=== PATIENT | male | born 1930 | race Caucasian/White ===

== ENCOUNTER 2016-07-14 18:50 | Inpatient (IN) | payer MEDICARE, MEDICAID ==
[~2016-07-14] VITALS: Ht 172.7 cm; Wt 93.0 kg
[~2016-07-14 18:50] MED LIST: AMINOPHYLLIN200 MG PO; AMOXICILLIN500 M2 PO; ARICEPT10 MG PO; AVAPRO150 MG PO; AVPAK AZITHROM250 M1 PO; Avapro300 MG PO; B COMPLETE1 EACH PO; Bactroban Oint22 GM T; CELEXA PO; CELEXA20 MG PO; CIPROFLOXACIN2.5 M1 OPH; CITALOPRAM20 MG PO; Ciprodex 0.3%-7.5 ML OT; DRISDOL50000 IU PO; DUONEB 3 MG/3 ML3 M1 INH; EFUDEX5% T; ELIQUIS5 M1 PO; GLUCOPHAGE PO; HUMALOG KW200 UNIT/1 SC; HUMALOG KW200 UNIT/1 SQ; HUMALOG100 U/ML SC; HUMALOG100 UNIT/2 SQ; INSULIN-HUMA100 U/ML SC; IS; JANUVIA50 MG PO; LANTUS SC; LANTUS100 U/ML SC; LOPRESSOR25 MG PO; METFORMIN750 MG PO; NAMENDA-28 PO; NAMENDA10 MG PO; NORCO PO; OXYGEN NAS; PRAVACHOL20 MG PO; PREDNISONE10 MG PO; RIVASTIGMINE1 EAC2 T; SUPER B-50 COM1 EAC1 PO; TYLENOL325 M1 PO; Tobrex Ophth S2.5 ML OPH; VIBRAMYCIN100 MG PO; VITAMIN B COMPL1 CAP PO; VITAMIN D31000 I2 PO; VITAMIN D34000 UNIT PO; VITAMIN D50000 I3 PO; VITAMIN D50000 IU PO
[2016-07-14 18:59] VITALS: BP 117/67
[2016-07-14 19:20] LABS: BILIRUBIN NEGATIVE (NEGATIVE); BLOOD NEGATIVE (NEGATIVE); CLARITY CLEAR (CLEAR); COLOR YELLOW (YELLOW); GLUCOSE 3+ (NEGATIVE); KETONE NEGATIVE (NEGATIVE); LEUKO ESTERASE NEGATIVE (NEGATIVE); NITRITE NEGATIVE (NEGATIVE); PH 5.5 (5.0-9.0); PROTEIN NEGATIVE (NEGATIVE); UROBILINOGEN 0.2 E.U./dl (0.2-1.0)
[2016-07-14 19:31] LABS: WBC 0-2 wbc/hpf (0-5)
[2016-07-14 19:32] LABS: URINE REFLEX COMMENT NO (NO); YEAST 1+
[2016-07-14 19:37] LABS: BASO % 0.4 % (0.0-1.0); EOS # 0.2 10*3/uL (0.0-0.4); EOS % 4.2 % (1.0-4.0); HEMATOCRIT 30.8 % (42.0-52.0); HEMOGLOBIN 9.7 g/dl (14.0-18.0); LYMPH # 0.9 10*3/uL (1.3-4.4); LYMPH % 16.6 % (27.0-41.0); MEAN CELL VOLUME 89.8 fl (80.0-94.0); MEAN CORPUSCULAR HGB 28.3 pg (27.0-31.0); MEAN CORPUSCULAR HGB CONC 31.5 g/dl (33.0-37.0); MEAN PLATELET VOLUME 12.2 fl (9.6-12.3); MONO # 0.4 10*3/uL (0.1-1.0); MONO % 7.7 % (3.0-9.0); NEUT # 3.8 10*3/uL (2.3-7.9); NEUT % 70.4 % (47.0-73.0); PLATELET COUNT AUTOMATED 82 10*3/uL (130-400); RED BLOOD COUNT 3.43 10*6/uL (4.50-5.90); RED CELL DISTRI WIDTH 17.8 % (0-14.5); WHITE BLOOD COUNT 5.4 10*3/uL (4.8-10.8)
[2016-07-14 19:46] LABS: INTERNATIONAL NORM RATIO 0.9 (2.0-3.5); PROTHROMBIN TIME 9.9 SECONDS (9.0-12.4)
[2016-07-14 19:51] VITALS: BP 126/77
[2016-07-14 19:54] LABS: ALBUMIN 2.7 gm/dl (3.1-4.5); ALKALINE PHOSPHATASE 104 U/L (45-117); BILIRUBIN, TOTAL 0.3 mg/dl (0.2-1.0); BUN 27 mg/dl (7-24); CARBON DIOXIDE 28 mmol/L (21-32); CHLORIDE 94 mmol/L (98-107); EST GLOM FILT AFRICAN AMERICAN > 60 ml/min; POTASSIUM 4.6 mmol/L (3.5-5.1); SGOT/AST 11 IU/L (3-35); SGPT/ALT 26 U/L (12-78); SODIUM 133 mmol/L (136-145); TOTAL PROTEIN 6.6 gm/dL (6.4-8.2)
[2016-07-14 19:57] LABS: GLUCOSE 551 mg/dL (65-99)
[2016-07-14] MEDS ORDERED: HUMALOG100 U/ML SC (20:00)
[2016-07-14 20:30] VITALS: BP 111/58
[2016-07-15] VITALS: BP 121/62
[2016-07-15 01:54] LABS: BUN 26 mg/dl (7-24); CARBON DIOXIDE 27 mmol/L (21-32); CHLORIDE 102 mmol/L (98-107); EST GLOM FILT AFRICAN AMERICAN > 60 ml/min; GLUCOSE 123 mg/dL (65-99); POTASSIUM 3.8 mmol/L (3.5-5.1); SODIUM 140 mmol/L (136-145)
[2016-07-15 05:51] LABS: BUN 24 mg/dl (7-24); CARBON DIOXIDE 27 mmol/L (21-32); CHLORIDE 101 mmol/L (98-107); EST GLOM FILT AFRICAN AMERICAN > 60 ml/min; POTASSIUM 3.5 mmol/L (3.5-5.1); SODIUM 139 mmol/L (136-145)
[2016-07-15 06:10] LABS: GLUCOSE 36 mg/dL (65-99)
[2016-07-15 06:12] LABS: BASO % 0.4 % (0.0-1.0); EOS # 0.4 10*3/uL (0.0-0.4); EOS % 5.8 % (1.0-4.0); HEMATOCRIT 29.6 % (42.0-52.0); HEMOGLOBIN 9.3 g/dl (14.0-18.0); IG # 0.1 10*3/uL (0.0-0.1); LYMPH # 1.5 10*3/uL (1.3-4.4); LYMPH % 19.5 % (27.0-41.0); MEAN CELL VOLUME 88.9 fl (80.0-94.0); MEAN CORPUSCULAR HGB 27.9 pg (27.0-31.0); MEAN CORPUSCULAR HGB CONC 31.4 g/dl (33.0-37.0); MONO # 0.7 10*3/uL (0.1-1.0); MONO % 9.3 % (3.0-9.0); NEUT # 4.9 10*3/uL (2.3-7.9); NEUT % 64.2 % (47.0-73.0); PLATELET COUNT AUTOMATED 85 10*3/uL (130-400); RED BLOOD COUNT 3.33 10*6/uL (4.50-5.90); WHITE BLOOD COUNT 7.6 10*3/uL (4.8-10.8)
[2016-07-15 08:00] VITALS: BP 102/62
[2016-07-15 12:00] VITALS: BP 138/84
[2016-07-15 16:00] VITALS: BP 108/50
[2016-07-15 20:00] VITALS: BP 114/52
[2016-07-16] VITALS: BP 112/89
[2016-07-16 06:35] LABS: BASO % 0.1 % (0.0-1.0); EOS # 0.3 10*3/uL (0.0-0.4); EOS % 4.9 % (1.0-4.0); HEMATOCRIT 29.7 % (42.0-52.0); IG # 0.1 10*3/uL (0.0-0.1); LYMPH # 1.2 10*3/uL (1.3-4.4); LYMPH % 17.7 % (27.0-41.0); MEAN CELL VOLUME 92.5 fl (80.0-94.0); MEAN CORPUSCULAR HGB CONC 30.3 g/dl (33.0-37.0); MEAN PLATELET VOLUME 12.7 fl (9.6-12.3); MONO # 0.5 10*3/uL (0.1-1.0); MONO % 7.2 % (3.0-9.0); NEUT # 4.6 10*3/uL (2.3-7.9); NEUT % 69.2 % (47.0-73.0); NUCLEATED RED BLOOD CELL 0.3 % (0.0-0.0); PLATELET COUNT AUTOMATED 88 10*3/uL (130-400); RED BLOOD COUNT 3.21 10*6/uL (4.50-5.90); RED CELL DISTRI WIDTH 18.4 % (0-14.5); WHITE BLOOD COUNT 6.7 10*3/uL (4.8-10.8)
[2016-07-16 06:48] LABS: BUN 19 mg/dl (7-24); CARBON DIOXIDE 24 mmol/L (21-32); CHLORIDE 104 mmol/L (98-107); EST GLOM FILT AFRICAN AMERICAN > 60 ml/min; GLUCOSE 150 mg/dL (65-99); POTASSIUM 4.4 mmol/L (3.5-5.1); SODIUM 139 mmol/L (136-145)
[2016-07-16 08:00] VITALS: BP 108/52
[2016-07-16] MEDS ORDERED: HUMALOG100 U/ML SC (10:17)
[2016-07-16] MEDS ORDERED: LEVEMIR10 ML SC (10:23)
[2016-07-16 12:00] VITALS: BP 100/50
== END 2016-07-16 14:30 | disposition other institution (70) | DRG 637 ==
LOC: ED 18:50 → EDHOLD 20:09 → 5E 20:26
PROVIDERS: Internal Medicine; Nurse Practitioner Family; Student in an Organized Health Care Education/Training Program
DX: E11.65 Type 2 diabetes mellitus with hyperglycemia (principal); E43 Unspecified severe protein-calorie malnutrition; E87.8 Other disorders of electrolyte and fluid balance, not elsewhere classified; D69.6 Thrombocytopenia, unspecified; E11.649 Type 2 diabetes mellitus with hypoglycemia without coma; F03.90 Unspecified dementia, unspecified severity, without behavioral disturbance, psychotic disturbance, mood disturbance, and anxiety; I50.9 Heart failure, unspecified; I11.0 Hypertensive heart disease with heart failure; E87.1 Hypo-osmolality and hyponatremia; I25.10 Atherosclerotic heart disease of native coronary artery without angina pectoris; I48.2 Chronic atrial fibrillation; Z68.31 Body mass index [BMI] 31.0-31.9, adult; Z79.4 Long term (current) use of insulin

== ENCOUNTER 2016-07-16 22:05 | Emergency (ER) | payer MEDICARE, MEDICAID ==
[~2016-07-16] VITALS: Ht 177.8 cm; Wt 81.6 kg
[~2016-07-16 22:05] MED LIST changes: +LEVEMIR10 ML SC
== END 2016-07-17 02:54 ==
LOC: ED 22:05
DX: S09.90XA Unspecified injury of head, initial encounter (principal); I48.91 Unspecified atrial fibrillation; I25.10 Atherosclerotic heart disease of native coronary artery without angina pectoris; I50.9 Heart failure, unspecified; F03.90 Unspecified dementia, unspecified severity, without behavioral disturbance, psychotic disturbance, mood disturbance, and anxiety; E11.9 Type 2 diabetes mellitus without complications; F32.9 Major depressive disorder, single episode, unspecified; I10 Essential (primary) hypertension; E55.9 Vitamin D deficiency, unspecified; Z95.1 Presence of aortocoronary bypass graft; Z98.890 Other specified postprocedural states; Z79.4 Long term (current) use of insulin; W06.XXXA Fall from bed, initial encounter; Y93.89 Activity, other specified; Y92.89 Other specified places as the place of occurrence of the external cause; Y99.9 Unspecified external cause status

== ENCOUNTER 2016-11-21 03:03 | Inpatient (IN) | payer MEDICARE, MEDICAID ==
[2016-11-21] VITALS (9 sets, daily range): BP systolic 107–135; BP diastolic 55–84
[~2016-11-21] VITALS: Ht 177.8 cm; Wt 95.3 kg
--- NOTE | ~2016-11-21 | PR ---
[place], [place] PROGRESS NOTE NAME: JAMES FELICIANO UNIT #: [id number] ROOM: 404 DOCTOR: ANDREW FAJARDO MD BIRTHDATE: [birth year] DOS: 11/23/2016 PULMONARY FOLLOWUP NOTE SUBJECTIVE: The patient had been comfortably resting at this time on his bed. The patient was continued with intravenous fluids. The hypotension for the patient has been resolved. He has been using oxygen supplementation. The patient noted with decreased mentation this morning at the time of the assessment. OBJECTIVE: VITAL SIGNS: Normal temperature, respiratory rate of 22, heart rate of 112- , blood pressure 112/72. Intake for the patient is 2100 mL, output 1375 mL. Pulse ox saturation on 2 liters nasal cannula was 100% saturation. HEENT: Examination shows no acute change. NECK: Supple. CARDIOVASCULAR SYSTEM: S1, S2 audible. LUNGS: Chest congestion for the patient noted with scattered crackles of the lungs with mild expiratory wheezing. ABDOMEN: Soft, nontender. LABORATORY DATA: The blood culture for the patient, which was done for this patient on the 10th of this month preliminary showing no bacterial growth. Final culture results were pending. CBC today: WBC count was normal, hemoglobin 8.1, hematocrit 27.3, platelet count for this patient was noted as 104,000. Two-view chest x-ray for the patient that was ordered today for the patient for further assessment shows progressive infiltration for the patient was noted in the lower lungs. IMPRESSION: 1. The patient who has been currently noted with pulmonary infiltration, which has noted with acute hypoxic respiratory failure. 2. Resolution of the hypotension for the patient was also noted. 3. Retained secretions of endobronchial tree for this patient was noted. PLAN OF TREATMENT: Order the arterial blood gases of the patient for assessment of the ventilatory status and the mental status of the patient. Continue current antibiotics for the patient and aspiration precautions. Usual care, other therapy, plan and management as well. Supportive care. No additional changes in the treatment at this time needs to be done. Overall, prognosis of the patient was noted as guarded. [place], [place] PROGRESS NOTE NAME: JAMES FELICIANO UNIT #: [id number] ROOM: 404 DOCTOR: ANDREW FAJARDO MD BIRTHDATE: [birth year] ANDREW THOMAS MD CM:PNTRANS [phone] ANDREW SR MD 11/24/16 0407 interface
--- NOTE | ~2016-11-21 | PR ---
[place], [place] PROGRESS NOTE NAME: JAMES FELICIANO UNIT #: [id number] ROOM: 518 DOCTOR: WILLIAM SR MD,ANDREW BIRTHDATE: [birth year] DOS: 11/29/2016 SUBJECTIVE: The patient has been noted fully awake and alert this morning without any distress. He has been noted with oxygen supplementation. The patient's BiPAP was discontinued because lack of use. OBJECTIVE: VITAL SIGNS: For the patient which was recorded showed normal temperature, respiratory rate 18, heart rate of 84-46, blood pressure 124/48-136/68. The pulse oxygen saturation on 2 liters nasal cannula 100% saturation recorded. HEENT: Examination shows no acute change. NECK: Supple. CARDIOVASCULAR: S1, S2 audible. LUNGS: The patient noted without any wheezing or crackles at the present time. ABDOMEN: Soft, nontender. LABORATORY DATA: CBC today, hemoglobin 8.6, hematocrit 27.8, WBC count was normal, platelet count was noted as 74,000. BMP of the patient this morning noted, glucose 49, BUN 27, creatinine was normal. IMPRESSION: 1. The patient with resolving acute hypoxic respiratory failure and hypercapnia. 2. Acute tracheobronchitis, which has been resolving progressively. 3. Improving mental status noted. 4. Resolving thrombocytopenia. PLAN OF TREATMENT: No changes in plan of management at this time. Continue the patient's current therapy as in progress. Hypoglycemia noted on today's lab has been already addressed and treated by the primary care attending. ANDREW THOMAS MD CM:PNTRANS [phone] ANDREW SR MD 11/29/162199 interface
--- NOTE | ~2016-11-21 | CON ---
[place], [place] REPORT OF CONSULTATION NAME: JAMES FELICIANO UNIT #: [id number] ROOM: 404 DOCTOR: ANDREW FAJARDO MD BIRTHDATE: [birth year] DOS: 11/22/2016 CONSULTATION REQUESTED BY: Hospitalist services. REASON FOR CONSULTATION: To assess the patient for ongoing acute respiratory complaints. HISTORY OF PRESENT ILLNESS: This is an 86-year-old elderly made for this patient who has been admitted to the hospital. The patient was brought from the senior living as the patient has been reporting symptoms of hypoglycemia, which was noted by the EMS and also noted excessive chest congestion and coughing. The patient was also noted with hypotension on this admission. The patient was treated for severe hypoglycemia resulting in improvement in the hypoglycemia with the D10. The patient currently noted to be awake and alert, able to answer some of the questions; however, the history of the patient was noted quite limited at the present time. The patient still noted significant chest congestion and not able to clear sputum. He has been getting intravenous fluids for this patient for the medical management of hypertension. The code status was noted as a DNR comfort care. As the patient was seen by the EMS at the senior living, the patient has been noted with significant oxygen desaturation and respiratory distress, started on the CPAP, with resulting in improvement in the oxygen saturations. Blood glucose at that time was reported as 31. REVIEW OF SYSTEMS: CONSTITUTIONAL: The patient was reported symptoms of fatigue and tiredness. Denies fever or chills. EYES: Denies any burning, redness or tenderness. EARS, NOSE, THROAT SYMPTOMS: No sore throat, hoarseness, otalgia, postnasal drainage. CARDIOVASCULAR: Denies anginal pain, edema or pain of the lower extremities. GASTROINTESTINAL: Denies dysphagia, nausea, vomiting, diarrhea, abdominal pain. GENITOURINARY SYMPTOMS: No dysuria, suprapubic pain or hematuria. MUSCULOSKELETAL: No symptoms of joint pain, redness or tenderness. CENTRAL NERVOUS SYSTEM: Past CVA with patient hemiparesis, bedbound status as well. SKIN: There were no symptoms of any abnormal skin rashes or lesions noted. Remaining systems were reviewed with the patient and they were limited, but noted as negative. PAST MEDICAL HISTORY: This patient was known as history of: 1. Coronary artery disease. 2. Essential hypertension. 3. 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 4. History of diabetes mellitus. 5. Past skin cancer from the scalp and the face, which has been removed surgically. 6. Coronary artery disease. 7. Hyperlipidemia. 8. Dementia and depression. [place], [place] REPORT OF CONSULTATION NAME: JAMES FELICIANO UNIT #: [id number] ROOM: [facility] DOCTOR: ANDREW FAJARDO MD BIRTHDATE: [birth year] 9. Atrial fibrillation. PAST SURGICAL HISTORY: 1. Coronary artery bypass graft in 1998. 2. Removal of the skin cancer. FAMILY HISTORY: Reported coronary artery disease and CVA. SOCIAL HISTORY: The patient is a resident of senior living for this patient for the last few years. He has not been noted any active tobacco use at this time. There is no history of alcohol use reported. MEDICATIONS: Current administered medications noted as use of Exelon patch, metoprolol tartrate, Mucinex, Eliquis, Mirapex, valproic acid, DuoNeb, IV Solu-Medrol, IV Zithromax, cefotaxime, and other p.r.n. medications administration. DRUG ALLERGIES: Noted as no known drug allergies. PHYSICAL EXAMINATION: GENERAL: This is an 86-year-old white male who has been currently lying on the bed for the patient with noted excessive chest congestion. Height was noted 5 feet 7 inches, weight of 95 kg, BMI 30. VITAL SIGNS: The patient shows a temperature of 101.4 degrees Fahrenheit, normal temperature, respiratory 26-28, heart rate of 117-80, blood pressure 88/42-112/65. Intake for the patient is 2.550 liter and output 1925 mL. Pulse oxygen saturation that was recorded for the patient on BiPAP was 99%, currently on 2 liters 99% saturation. HEENT: Head was atraumatic. Eyes nonicterus. NECK: Supple. CARDIOVASCULAR: S1, S2 audible. LUNGS: For the patient was noted with crackles of the lungs noted with expiratory wheezing and decreased breath sounds bilaterally. ABDOMEN: Soft, flat, nontender. EXTREMITIES: Show no edema, clubbing, cyanosis. CENTRAL NERVOUS SYSTEM: For this patient was noted with hemiplegia. Cannot be performed for this patient in addition to that. SKIN: For the patient showed no lesions or rashes, scattered area of bruising was noted, most likely medication related use as anticoagulation. MUSCULOSKELETAL: Does not show any acute deformities. LABORATORY DATA: The labs in the patient outpatient urine culture was noted with heavy growth of Strep viridans. CBC of the patient of 11/21/2016, hemoglobin 9.7, hematocrit 30.9, WBC count normal, platelet count [id number]. Lactic acid 1.3 yesterday on admission. CMP yesterday for this patient glucose 25, BUN 43, creatinine was normal. The troponin mildly elevated at 0.08. Arterial blood gas for patient on , pH of 7.34, pCO2 of 41, pO2 of 96 on high flow 10 liters nasal cannula supplementation. In addition, CK-MB and troponin of the patient noted normal CK-MB and troponin this morning and yesterday for this patient 2 additional sets. Troponin remains minimally [place], [place] REPORT OF CONSULTATION NAME: JAMES FELICIANO UNIT #: [id number] ROOM: 404 DOCTOR: WILLIAM SR MD,ANDREW BIRTHDATE: [birth year] elevated as previously. Today BUN was noted 43, creatinine 1.36. In the BMP, glucose has risen to 410. Repeat urine culture shows heavy growth of gram-negative bacilli for this patient, pending identification and sensitivities. Chest x-ray shows patchy infiltration of the left lower lobe with only one-view chest x-ray was done at that time. IMPRESSION: 1. The patient who has been currently admitted to the hospital multiple problems noted with severe acute hypoxic respiratory failure result of acute pneumonia strong possibility to aspiration for gram-negative and gram-positive organisms consideration. 2. Severe hypoglycemia lack of oral intake for this patient and because of the current acute infection, sepsis would be considered. 3. Acute kidney injury secondary to volume depletion and hypotension with acute tubular necrosis consideration. 4. History of atrial fibrillation. The patient is on chronic anticoagulation. 5. Retained secretions endobronchial tree. 6. Acute exacerbation of bronchial asthma was suspected with current acute infection as well. 7. Multiple medical problems including for the patient's CVA as well. 8. Increased troponin for the patient, most likely demand from the myocardium with the current acute infectious burden. PLAN OF TREATMENT: The patient will be continued with antibiotics, bronchodilators, corticosteroids. Monitoring management of the hyperglycemia and hypoglycemia accordingly. Continuation of bronchodilators. Aspiration precaution. Dietary precautions for the patient to prevent aspiration. Titrate oxygen and maintain saturation 92% or greater. At this time, the patient does not require use of the BiPAP but close monitoring to be done for the comfort care. If respiratory status deteriorate certainly the BiPAP would be tried more for comfort and medical management at the present time of respiratory failure. Supportive care, other usual medical management, plan of care and therapy. All other treatment of the patient will be continued for the patient as ongoing. Usual therapies. Further treatment changes will be done based on the progression of the patient's current acute illness. Thanks for allowing me to participate in the care of this patient. ANDREW THOMAS MD CM:CONSTR:REPORT OF CONSULTATION 1635 11/23/16 0648 interface
--- NOTE | ~2016-11-21 | EKG ---
[place], [place] ELECTROCARDIOGRAM REPORT NAME: JAMES FELICIANO UNIT #: [id number] ROOM: 404 DOCTOR: BARBARA GARZA MD BIRTHDATE: [birth year] DOS: 11/21/2016 TIME: 0333. FINDINGS: Sinus tachycardia with rate of 118, frequent premature ventricular contractions. Nonspecific intraventricular conduction delay. Nonspecific ST-T wave changes. Abnormal electrocardiogram. BARBARA GARZA MD CM:EKGRPT:ELECTROCARDIOGRAM REPORT [id number] BARBARA GARZA MD
--- NOTE | ~2016-11-21 | PR ---
[place], [place] PROGRESS NOTE NAME: [id number] UNIT #: [id number] ROOM: 518 DOCTOR: WILLIAM SR MD,ANDREW BIRTHDATE: [birth year] DOS: 11/26/2016 PULMONARY PROGRESS NOTE SUBJECTIVE: The patient was seen and examined on 11/26/2016. He has been noted with chest congestion yesterday, noted respiratory distress. The patient's code status noted comfort care. BiPAP treatment was offered for the patient moreover for the comfort for this patient because of severe respiratory distress. The family member accepted that. The patient was started on the BiPAP, which has been used intermittently. OBJECTIVE: VITAL SIGNS: For the patient shows normal temperature, respiratory rate 20, heart rate 81, blood pressure 130/72. Pulse oxygen saturation of the patient on 2 liters nasal cannula 100% saturation recorded. HEENT: Examination shows no new change. CARDIOVASCULAR: S1, S2 audible. LUNGS: Noted scattered crackles of the lungs for the patient was noted. ABDOMEN: Soft, nontender. LABORATORY DATA: CBC of 11/26/2016, hemoglobin 8.6, hematocrit 27.8, platelet count was normal. CMP of the patient this morning, BUN 40, creatinine was normal, glucose 172. IMPRESSION: The patient who has been currently treated for acute respiratory failure, noted with chest congestion, respiratory distress previously, seemed to be stable at this time. Comfort care code status as well. PLAN OF TREATMENT: No changes in the plan of management. Continue the current plan of management as in progress with antibiotics, bronchodilators and others. Overall, condition of the patient was noted as with poor prognosis. ANDREW THOMAS MD CM:PNTRANS [phone] ANDREW SR MD 11/27/16 0126 interface
--- NOTE | ~2016-11-21 | PR ---
[place], [place] PROGRESS NOTE NAME: JAMES FELICIANO UNIT #: [id number] ROOM: 518 DOCTOR: WILLIAM SR MD,ANDREW BIRTHDATE: [birth year] DOS: 11/27/2016 SUBJECTIVE: He has been noted without any acute changes in the respiratory status at this time. The patient has been comfortably resting, does not show signs of chest congestion or any respiratory distress. Oxygen supplementation has been continued with the nasal cannula this morning at the time of the assessment. The patient arose to the vocal commands, but does not have any verbal communication. OBJECTIVE: VITAL SIGNS: Normal temperature, respiratory rate of 16, heart rate 81, blood pressure 113/63. Intake 1120 mL, output was not documented, pulse oxygen ____ 97% saturation. HEENT: Examination shows no new change. NECK: Supple. CARDIOVASCULAR: S1, S2 audible. LUNGS: Moderate decreased breath sounds, scattered expiratory wheezing and crackles. ABDOMEN: Soft, nontender. IMPRESSION: The patient with persistent acute hypercapnic and hypoxic respiratory failure. The patient noted comfortable at this time. The patient code status noted comfort care. PLAN OF TREATMENT: No changes in the plan of management at this time. Continue the patient's current therapy, plan of care, other usual treatment. Supportive care. All other usual medical management, plan of care. ANDREW THOMAS MD CM:PNTRANS [id number] ANDREW SR MD 11/28/16 0722 interface
--- NOTE | ~2016-11-21 | PR ---
[place], [place] PROGRESS NOTE NAME: JAMES FELICIANO UNIT #: [id number] ROOM: 518 DOCTOR: ANDREW FAJARDO MD BIRTHDATE: [birth year] DOS: 11/28/2016 PULMONARY PROGRESS NOTE SUBJECTIVE: The patient was seen and examined on 11/28/2016, remained in a comfort care mode of treatment for this patient. He was continued on antibiotic, bronchodilator treatment. BiPAP has not been used for the patient for the past 4 days. Currently, the patient is noted on oxygen supplementation nasal cannula. OBJECTIVE: VITAL SIGNS: Show normal temperature, respiratory rate 20, heart rate 79, blood pressure 132/67. GENERAL: The mental status of the patient, the patient appeared to be sleepy for this patient and changes in mental status remains persistent from yesterday. Intake is 1470, the output was not documented, pulse oxygen saturation on 2 liters nasal cannula 99% saturation recorded. HEENT: Examination dryness of the oral mucosa. NECK: Supple. CARDIOVASCULAR SYSTEM: S1, S2 audible. LUNGS: Noted with expiratory wheezing of the lungs bilaterally. ABDOMEN: Soft, nontender. EXTREMITIES: The patient shows mild edema. LABORATORY DATA: CBC of 11/28/2016, hemoglobin 8, hematocrit 26.2, WBC count was normal, platelet count 57,000. The CMP of the patient this morning, BUN 32, creatinine was normal. Glucose 199. Chest x-ray of the patient that was done yesterday shows evidence of pulmonary infiltration with the finding of congestive heart failure and pleural fluids bilaterally. IMPRESSION: Persistent acute respiratory failure for the patient was noted this time, severe debility for this patient, hypoxia, changes in mental status. Bilateral pleural as well was noted. PLAN OF TREATMENT: Diuretic therapy. Bronchodilators. All other previous treatment plan of management. Usual care. Continuation of the anticoagulation with history of atrial fibrillation. Overall prognosis of the patient remains guarded. [place], [place] PROGRESS NOTE NAME: JAMES FELICIANO UNIT #: [id number] ROOM: 518 DOCTOR: ANDREW FAJARDO MD BIRTHDATE: [birth year] ANDREW THOMAS MD CM:PNTRANS [phone] ANDREW SR MD 11/29/16 0044 interface
[2016-11-21] MEDS ORDERED: EXELON9.5 MG/24 PO (03:18)
[2016-11-21] MEDS ORDERED: EXEL13.31 TD (03:18)
[2016-11-21] MEDS ORDERED: GUAIFENESIN600 MG PO (03:19)
[2016-11-21] MEDS ORDERED: JANUVIA100 MG PO (03:20)
[2016-11-21] MEDS ORDERED: IPRATROPIUM BRO (03:20)
[2016-11-21] MEDS ORDERED: DEPAKENE250 M1 PO (03:20)
[2016-11-21] MEDS ORDERED: REMERON15 M2 PO (03:21)
[2016-11-21] MEDS ORDERED: PRILOSEC20 M1 PO (03:22)
[2016-11-21] MEDS ORDERED: HUMALOG100 UNIT/2 SQ (03:22)
[2016-11-21] MEDS ORDERED: LEVEMIR10 ML SC (03:23)
[2016-11-21] MEDS ORDERED: AQUAPHOR OINTM396 GM TP (03:23)
[2016-11-21] MEDS ORDERED: VITAMIN D32000 IU PO (03:24)
[2016-11-21] MEDS ORDERED: JANUVIA50 MG PO (03:24)
[2016-11-21] MEDS ORDERED: ELIQUIS2.5 M1 PO (03:24)
[2016-11-21] MEDS ORDERED: METFORMIN500 MG PO (03:25)
[2016-11-21] MEDS ORDERED: METOPROLOL25 MG PO (03:25)
[2016-11-21] MEDS ORDERED: PAIN RELIEF325 M2 PO (03:26)
[2016-11-21 03:35] LABS: BASO % 0.2 % (0.0-1.0); EOS % 0.5 % (1.0-4.0); HEMATOCRIT 30.9 % (42.0-52.0); HEMOGLOBIN 9.7 g/dl (14.0-18.0); IG # 0.1 10*3/uL (0.0-0.1); LYMPH # 0.5 10*3/uL (1.3-4.4); LYMPH % 5.6 % (27.0-41.0); MEAN CELL VOLUME 90.6 fl (80.0-94.0); MEAN CORPUSCULAR HGB 28.4 pg (27.0-31.0); MEAN CORPUSCULAR HGB CONC 31.4 g/dl (33.0-37.0); MEAN PLATELET VOLUME 11.6 fl (9.6-12.3); MONO # 0.6 10*3/uL (0.1-1.0); MONO % 7.7 % (3.0-9.0); NEUT # 6.9 10*3/uL (2.3-7.9); NEUT % 85.3 % (47.0-73.0); PLATELET COUNT AUTOMATED 119 10*3/uL (130-400); RED BLOOD COUNT 3.41 10*6/uL (4.50-5.90); RED CELL DISTRI WIDTH 15.9 % (0-14.5); WHITE BLOOD COUNT 8.1 10*3/uL (4.8-10.8)
[2016-11-21 03:51] LABS: ALBUMIN 1.5 gm/dl (3.1-4.5); ALKALINE PHOSPHATASE 93 U/L (45-117); BILIRUBIN, TOTAL 0.2 mg/dl (0.2-1.0); BUN 43 mg/dl (7-24); CARBON DIOXIDE 24 mmol/L (21-32); CHLORIDE 111 mmol/L (98-107); EST GLOM FILT AFRICAN AMERICAN > 60 ml/min; POTASSIUM 4.5 mmol/L (3.5-5.1); SGOT/AST 16 IU/L (3-35); SGPT/ALT 14 U/L (12-78); SODIUM 145 mmol/L (136-145); TOTAL PROTEIN 7.1 gm/dL (6.4-8.2)
[2016-11-21 04:01] LABS: GLUCOSE 25 mg/dL (65-99)
[2016-11-21 04:02] LABS: TROPONIN I 0.082 ng/ml (<0.045)
[2016-11-21 04:10] LABS: BILIRUBIN NEGATIVE (NEGATIVE); BLOOD TRACE-INTACT (NEGATIVE); CLARITY CLOUDY (CLEAR); COLOR YELLOW (YELLOW); GLUCOSE NEGATIVE (NEGATIVE); KETONE NEGATIVE (NEGATIVE); LEUKO ESTERASE 3+ (NEGATIVE); NITRITE POSITIVE (NEGATIVE); PH >= 9.0 (5.0-9.0); PROTEIN 2+ (NEGATIVE); UROBILINOGEN 0.2 E.U./dl (0.2-1.0)
[2016-11-21 04:20] LABS: BACTERIA 4+; URINE REFLEX COMMENT YES (NO); WBC TNTC wbc/hpf (0-5)
[2016-11-21 04:26] LABS: ABG CO2 CONTENT 23.3 mmol/L (23-27); ARTERIAL BLOOD GAS PH 7.346 (7.35-7.45); ARTERIAL BLOOD GAS PO2 96.8 mmHg (80-90)
[2016-11-21] MEDS ORDERED: TOBREX OPHTH O3.5 GM OPH (04:26)
[2016-11-21] MEDS ORDERED: EXELON4.6 MG/24 T (06:56)
[2016-11-21] MEDS ORDERED: VIT B PO (07:04)
[2016-11-21 07:09] LABS: BASO % 0.1 % (0.0-1.0); EOS % 0.5 % (1.0-4.0); HEMATOCRIT 30.9 % (42.0-52.0); HEMOGLOBIN 9.4 g/dl (14.0-18.0); IG # 0.1 10*3/uL (0.0-0.1); LYMPH # 0.5 10*3/uL (1.3-4.4); LYMPH % 5.9 % (27.0-41.0); MEAN CELL VOLUME 91.7 fl (80.0-94.0); MEAN CORPUSCULAR HGB 27.9 pg (27.0-31.0); MEAN CORPUSCULAR HGB CONC 30.4 g/dl (33.0-37.0); MEAN PLATELET VOLUME 11.5 fl (9.6-12.3); MONO # 0.7 10*3/uL (0.1-1.0); MONO % 8.4 % (3.0-9.0); NEUT # 7.5 10*3/uL (2.3-7.9); PLATELET COUNT AUTOMATED 123 10*3/uL (130-400); RED BLOOD COUNT 3.37 10*6/uL (4.50-5.90); WHITE BLOOD COUNT 8.9 10*3/uL (4.8-10.8)
[2016-11-21 07:22] LABS: BUN 42 mg/dl (7-24); CARBON DIOXIDE 21 mmol/L (21-32); CHLORIDE 109 mmol/L (98-107); CPK 145 U/L (39-308); EST GLOM FILT AFRICAN AMERICAN > 60 ml/min; FREE T4 1.02 ng/dl (0.76-1.46); GLUCOSE 123 mg/dL (65-99); MAGNESIUM 1.8 mg/dL (1.5-2.1); PHOSPHOROUS 3.5 mg/dL (2.5-4.9); POTASSIUM 4.5 mmol/L (3.5-5.1); SODIUM 141 mmol/L (136-145)
[2016-11-21 07:29] LABS: CKMB 2.4 ng/ml (0.5-3.6)
[2016-11-21 07:33] LABS: TROPONIN I 0.059 ng/ml (<0.045)
[2016-11-21 07:46] LABS: HEMOGLOBIN A1c 9.7 % (4.8-5.6)
[2016-11-21 08:47] LABS: FOLIC ACID 17.82 ng/mL (>5.38); VITAMIN D, 25-HYDROXY 63.4 ng/mL (30-100)
[2016-11-21 12:49] LABS: CKMB 3.1 ng/ml (0.5-3.6)
[2016-11-21 12:54] LABS: TROPONIN I 0.055 ng/ml (<0.045)
[2016-11-21 18:16] LABS: CKMB 1.8 ng/ml (0.5-3.6)
[2016-11-21 18:18] LABS: TROPONIN I 0.064 ng/ml (<0.045)
[2016-11-22 00:17] VITALS: BP 133/65
[2016-11-22 07:33] LABS: BASO % 0.2 % (0.0-1.0); HEMATOCRIT 25.9 % (42.0-52.0); HEMOGLOBIN 7.8 g/dl (14.0-18.0); IG # 0.1 10*3/uL (0.0-0.1); LYMPH # 0.3 10*3/uL (1.3-4.4); LYMPH % 6.6 % (27.0-41.0); MEAN CELL VOLUME 92.8 fl (80.0-94.0); MEAN CORPUSCULAR HGB CONC 30.1 g/dl (33.0-37.0); MEAN PLATELET VOLUME 12.2 fl (9.6-12.3); MONO # 0.1 10*3/uL (0.1-1.0); MONO % 2.3 % (3.0-9.0); NEUT # 4.3 10*3/uL (2.3-7.9); NEUT % 89.8 % (47.0-73.0); PLATELET COUNT AUTOMATED 98 10*3/uL (130-400); RED BLOOD COUNT 2.79 10*6/uL (4.50-5.90); RED CELL DISTRI WIDTH 16.1 % (0-14.5); WHITE BLOOD COUNT 4.7 10*3/uL (4.8-10.8)
[2016-11-22 07:42] LABS: BUN 43 mg/dl (7-24); CARBON DIOXIDE 21 mmol/L (21-32); CHLORIDE 111 mmol/L (98-107); EST GLOM FILT AFRICAN AMERICAN > 60 ml/min; GLUCOSE 410 mg/dL (65-99); POTASSIUM 4.7 mmol/L (3.5-5.1); SODIUM 140 mmol/L (136-145)
[2016-11-22 08:00] VITALS: BP 88/42
[2016-11-22 12:00] VITALS: BP 112/65
[2016-11-22 16:00] VITALS: BP 107/59
[2016-11-22 20:00] VITALS: BP 117/69
[2016-11-23] VITALS: BP 114/66
[2016-11-23 06:58] LABS: BASO % 0.1 % (0.0-1.0); HEMATOCRIT 27.3 % (42.0-52.0); HEMOGLOBIN 8.1 g/dl (14.0-18.0); IG # 0.1 10*3/uL (0.0-0.1); LYMPH # 0.5 10*3/uL (1.3-4.4); LYMPH % 6.6 % (27.0-41.0); MEAN CELL VOLUME 94.8 fl (80.0-94.0); MEAN CORPUSCULAR HGB 28.1 pg (27.0-31.0); MEAN CORPUSCULAR HGB CONC 29.7 g/dl (33.0-37.0); MONO # 0.4 10*3/uL (0.1-1.0); MONO % 5.4 % (3.0-9.0); NEUT # 6.3 10*3/uL (2.3-7.9); NEUT % 86.8 % (47.0-73.0); PLATELET COUNT AUTOMATED 104 10*3/uL (130-400); RED BLOOD COUNT 2.88 10*6/uL (4.50-5.90); WHITE BLOOD COUNT 7.2 10*3/uL (4.8-10.8)
[2016-11-23 07:33] LABS: BUN 41 mg/dl (7-24); CARBON DIOXIDE 21 mmol/L (21-32); CHLORIDE 115 mmol/L (98-107); GLUCOSE 283 mg/dL (65-99); POTASSIUM 4.8 mmol/L (3.5-5.1); SODIUM 144 mmol/L (136-145)
[2016-11-23 07:35] LABS: EST GLOM FILT AFRICAN AMERICAN > 60 ml/min
[2016-11-23 08:00] VITALS: BP 112/72
[2016-11-23 12:00] VITALS: BP 103/58
[2016-11-23 15:06] LABS: ABG BASE EXCESS -7.2 mmol/L (-2.0-2.0); ABG CO2 CONTENT 18.7 mmol/L (23-27); ABG HCO3 17.6 mmol/l (22-26); ABG TEMPERATURE 96.7 F (98.0-99.0); ARTERIAL BLOOD GAS PH 7.338 (7.35-7.45)
[2016-11-23 16:00] VITALS: BP 105/55
[2016-11-23 20:00] VITALS: BP 109/54
[2016-11-24] VITALS: BP 120/66
[2016-11-24 06:46] LABS: BASO % 0.4 % (0.0-1.0); HEMATOCRIT 28.4 % (42.0-52.0); HEMOGLOBIN 8.5 g/dl (14.0-18.0); IG # 0.1 10*3/uL (0.0-0.1); LYMPH # 0.4 10*3/uL (1.3-4.4); LYMPH % 7.5 % (27.0-41.0); MEAN CELL VOLUME 94.4 fl (80.0-94.0); MEAN CORPUSCULAR HGB 28.2 pg (27.0-31.0); MEAN CORPUSCULAR HGB CONC 29.9 g/dl (33.0-37.0); MEAN PLATELET VOLUME 11.6 fl (9.6-12.3); MONO # 0.1 10*3/uL (0.1-1.0); MONO % 2.3 % (3.0-9.0); NEUT # 4.7 10*3/uL (2.3-7.9); NEUT % 88.9 % (47.0-73.0); PLATELET COUNT AUTOMATED 97 10*3/uL (130-400); RED BLOOD COUNT 3.01 10*6/uL (4.50-5.90); RED CELL DISTRI WIDTH 16.1 % (0-14.5); WHITE BLOOD COUNT 5.3 10*3/uL (4.8-10.8)
[2016-11-24 07:22] LABS: BUN 42 mg/dl (7-24); CARBON DIOXIDE 22 mmol/L (21-32); CHLORIDE 117 mmol/L (98-107); EST GLOM FILT AFRICAN AMERICAN > 60 ml/min; GLUCOSE 176 mg/dL (65-99); SODIUM 148 mmol/L (136-145)
[2016-11-24 08:00] VITALS: BP 112/60
[2016-11-24 12:00] VITALS: BP 118/62
[2016-11-24 16:00] VITALS: BP 119/62
[2016-11-24 20:00] VITALS: BP 109/41
[2016-11-25] VITALS: BP 117/49
[2016-11-25 04:00] VITALS: BP 113/56
[2016-11-25 06:21] LABS: BASO % 0.3 % (0.0-1.0); HEMATOCRIT 27.8 % (42.0-52.0); HEMOGLOBIN 8.3 g/dl (14.0-18.0); LYMPH # 0.4 10*3/uL (1.3-4.4); LYMPH % 9.4 % (27.0-41.0); MEAN CELL VOLUME 93.3 fl (80.0-94.0); MEAN CORPUSCULAR HGB 27.9 pg (27.0-31.0); MEAN CORPUSCULAR HGB CONC 29.9 g/dl (33.0-37.0); MEAN PLATELET VOLUME 11.9 fl (9.6-12.3); MONO # 0.2 10*3/uL (0.1-1.0); MONO % 4.2 % (3.0-9.0); NEUT # 3.3 10*3/uL (2.3-7.9); NEUT % 85.1 % (47.0-73.0); PLATELET COUNT AUTOMATED 87 10*3/uL (130-400); RED BLOOD COUNT 2.98 10*6/uL (4.50-5.90); RED CELL DISTRI WIDTH 16.1 % (0-14.5); WHITE BLOOD COUNT 3.8 10*3/uL (4.8-10.8)
[2016-11-25 06:58] LABS: ALBUMIN 1.5 gm/dl (3.1-4.5); BUN 44 mg/dl (7-24); CARBON DIOXIDE 22 mmol/L (21-32); CHLORIDE 117 mmol/L (98-107); EST GLOM FILT AFRICAN AMERICAN > 60 ml/min; GLUCOSE 240 mg/dL (65-99); POTASSIUM 4.6 mmol/L (3.5-5.1); SGOT/AST 13 IU/L (3-35); SGPT/ALT 12 U/L (12-78); SODIUM 146 mmol/L (136-145)
[2016-11-25 07:00] LABS: ALKALINE PHOSPHATASE 65 U/L (45-117); BILIRUBIN, TOTAL 0.2 mg/dl (0.2-1.0); TOTAL PROTEIN 5.9 gm/dL (6.4-8.2)
[2016-11-25 08:00] VITALS: BP 105/48
[2016-11-25 12:00] VITALS: BP 124/46; BP 129/68
[2016-11-25 16:00] VITALS: BP 137/80
[2016-11-25 20:00] VITALS: BP 132/58
[2016-11-26] VITALS: BP 148/74
[2016-11-26 06:08] LABS: HEMATOCRIT 28.7 % (42.0-52.0); HEMOGLOBIN 8.6 g/dl (14.0-18.0); IG # 0.1 10*3/uL (0.0-0.1); LYMPH # 0.5 10*3/uL (1.3-4.4); LYMPH % 8.1 % (27.0-41.0); MEAN CELL VOLUME 92.9 fl (80.0-94.0); MEAN CORPUSCULAR HGB 27.8 pg (27.0-31.0); MEAN PLATELET VOLUME 11.8 fl (9.6-12.3); MONO # 0.4 10*3/uL (0.1-1.0); MONO % 7.4 % (3.0-9.0); NEUT # 4.9 10*3/uL (2.3-7.9); NEUT % 83.6 % (47.0-73.0); NUCLEATED RED BLOOD CELL 0.5 % (0.0-0.0); PLATELET COUNT AUTOMATED 83 10*3/uL (130-400); RED BLOOD COUNT 3.09 10*6/uL (4.50-5.90); RED CELL DISTRI WIDTH 15.9 % (0-14.5); WHITE BLOOD COUNT 5.8 10*3/uL (4.8-10.8)
[2016-11-26 06:40] LABS: ALBUMIN 1.5 gm/dl (3.1-4.5); BUN 40 mg/dl (7-24); CARBON DIOXIDE 24 mmol/L (21-32); CHLORIDE 115 mmol/L (98-107); EST GLOM FILT AFRICAN AMERICAN > 60 ml/min; GLUCOSE 172 mg/dL (65-99); POTASSIUM 5.1 mmol/L (3.5-5.1); SGOT/AST 17 IU/L (3-35); SGPT/ALT 14 U/L (12-78); SODIUM 145 mmol/L (136-145)
[2016-11-26 06:42] LABS: ALKALINE PHOSPHATASE 63 U/L (45-117); BILIRUBIN, TOTAL 0.3 mg/dl (0.2-1.0); TOTAL PROTEIN 6.2 gm/dL (6.4-8.2)
[2016-11-26 08:00] VITALS: BP 130/72
[2016-11-26 12:00] VITALS: BP 113/58
[2016-11-26 16:00] VITALS: BP 168/70
[2016-11-26 20:00] VITALS: BP 130/49
[2016-11-27] VITALS: BP 116/58
[2016-11-27 07:26] LABS: BASO % 0.1 % (0.0-1.0); HEMATOCRIT 28.7 % (42.0-52.0); HEMOGLOBIN 8.8 g/dl (14.0-18.0); IG # 0.1 10*3/uL (0.0-0.1); LYMPH # 0.6 10*3/uL (1.3-4.4); LYMPH % 8.6 % (27.0-41.0); MEAN CORPUSCULAR HGB 28.2 pg (27.0-31.0); MEAN CORPUSCULAR HGB CONC 30.7 g/dl (33.0-37.0); MEAN PLATELET VOLUME 11.4 fl (9.6-12.3); MONO # 0.4 10*3/uL (0.1-1.0); MONO % 5.9 % (3.0-9.0); NEUT # 5.7 10*3/uL (2.3-7.9); NEUT % 84.5 % (47.0-73.0); NUCLEATED RED BLOOD CELL 0.4 % (0.0-0.0); PLATELET COUNT AUTOMATED 69 10*3/uL (130-400); RED BLOOD COUNT 3.12 10*6/uL (4.50-5.90); RED CELL DISTRI WIDTH 15.8 % (0-14.5); WHITE BLOOD COUNT 6.8 10*3/uL (4.8-10.8)
[2016-11-27 07:34] LABS: BUN 38 mg/dl (7-24); CARBON DIOXIDE 24 mmol/L (21-32); CHLORIDE 115 mmol/L (98-107); EST GLOM FILT AFRICAN AMERICAN > 60 ml/min; GLUCOSE 141 mg/dL (65-99); POTASSIUM 5.1 mmol/L (3.5-5.1); SODIUM 145 mmol/L (136-145)
[2016-11-27 08:00] VITALS: BP 128/72
[2016-11-27 12:00] VITALS: BP 113/63
[2016-11-27 16:00] VITALS: BP 116/54
[2016-11-27 20:00] VITALS: BP 127/59
[2016-11-28] VITALS: BP 127/70
[2016-11-28 06:47] LABS: HEMATOCRIT 26.2 % (42.0-52.0); IG # 0.1 10*3/uL (0.0-0.1); LYMPH # 0.4 10*3/uL (1.3-4.4); LYMPH % 7.7 % (27.0-41.0); MEAN CELL VOLUME 93.6 fl (80.0-94.0); MEAN CORPUSCULAR HGB 28.6 pg (27.0-31.0); MEAN CORPUSCULAR HGB CONC 30.5 g/dl (33.0-37.0); MEAN PLATELET VOLUME 11.1 fl (9.6-12.3); MONO # 0.2 10*3/uL (0.1-1.0); MONO % 3.5 % (3.0-9.0); NEUT % 87.4 % (47.0-73.0); NUCLEATED RED BLOOD CELL 0.3 % (0.0-0.0); PLATELET COUNT AUTOMATED 57 10*3/uL (130-400); RED CELL DISTRI WIDTH 15.7 % (0-14.5); WHITE BLOOD COUNT 5.7 10*3/uL (4.8-10.8)
[2016-11-28 07:07] LABS: ALBUMIN 2.3 gm/dl (3.1-4.5); ALKALINE PHOSPHATASE 56 U/L (45-117); BILIRUBIN, TOTAL 0.5 mg/dl (0.2-1.0); BUN 33 mg/dl (7-24); CARBON DIOXIDE 27 mmol/L (21-32); CHLORIDE 109 mmol/L (98-107); EST GLOM FILT AFRICAN AMERICAN > 60 ml/min; GLUCOSE 199 mg/dL (65-99); POTASSIUM 5.1 mmol/L (3.5-5.1); SGOT/AST 17 IU/L (3-35); SGPT/ALT 19 U/L (12-78); SODIUM 145 mmol/L (136-145); TOTAL PROTEIN 5.7 gm/dL (6.4-8.2)
[2016-11-28 08:00] VITALS: BP 132/67
[2016-11-28 12:00] VITALS: BP 119/67
[2016-11-28 16:00] VITALS: BP 131/52
[2016-11-28 20:00] VITALS: BP 137/78
[2016-11-29 00:01] VITALS: BP 136/68
[2016-11-29 06:54] LABS: BASO % 0.1 % (0.0-1.0); EOS % 0.2 % (1.0-4.0); HEMATOCRIT 27.8 % (42.0-52.0); HEMOGLOBIN 8.6 g/dl (14.0-18.0); IG # 0.1 10*3/uL (0.0-0.1); LYMPH # 1.3 10*3/uL (1.3-4.4); LYMPH % 14.7 % (27.0-41.0); MEAN CELL VOLUME 92.1 fl (80.0-94.0); MEAN CORPUSCULAR HGB 28.5 pg (27.0-31.0); MEAN CORPUSCULAR HGB CONC 30.9 g/dl (33.0-37.0); MEAN PLATELET VOLUME 13.1 fl (9.6-12.3); MONO # 0.6 10*3/uL (0.1-1.0); MONO % 6.4 % (3.0-9.0); NEUT # 7.1 10*3/uL (2.3-7.9); NEUT % 77.6 % (47.0-73.0); NUCLEATED RED BLOOD CELL 0.3 % (0.0-0.0); PLATELET COUNT AUTOMATED 74 10*3/uL (130-400); RED BLOOD COUNT 3.02 10*6/uL (4.50-5.90); RED CELL DISTRI WIDTH 15.8 % (0-14.5); WHITE BLOOD COUNT 9.1 10*3/uL (4.8-10.8)
[2016-11-29 07:01] LABS: BUN 27 mg/dl (7-24); CARBON DIOXIDE 28 mmol/L (21-32); CHLORIDE 107 mmol/L (98-107); EST GLOM FILT AFRICAN AMERICAN > 60 ml/min; POTASSIUM 4.2 mmol/L (3.5-5.1); SODIUM 143 mmol/L (136-145)
[2016-11-29 07:04] LABS: GLUCOSE 49 mg/dL (65-99)
[2016-11-29 08:00] VITALS: BP 124/48
[2016-11-29 12:00] VITALS: BP 120/54
[2016-11-29] MEDS ORDERED: PREDNISONE10 MG PO (14:15)
[2016-11-29 16:00] VITALS: BP 128/65
== END 2016-11-29 16:20 | disposition other institution (70) | DRG 871 ==
LOC: ED 03:03 → EDHOLD 04:56 → 4E 04:56 → 5E 11-24 08:48
PROVIDERS: Emergency Medicine Emergency Medical Services; Family Medicine; Internal Medicine; Internal Medicine Critical Care Medicine; Student in an Organized Health Care Education/Training Program
PROC: 5A09357 Assistance with Respiratory Ventilation, Less than 24 Consecutive Hours, Continuous Positive Airway Pressure (ICD-10-PCS; principal; 2016-11-24)
DX: A41.9 Sepsis, unspecified organism (principal); J18.9 Pneumonia, unspecified organism; J96.21 Acute and chronic respiratory failure with hypoxia; E43 Unspecified severe protein-calorie malnutrition; G93.41 Metabolic encephalopathy; E87.2 Acidosis; I11.0 Hypertensive heart disease with heart failure; N17.9 Acute kidney failure, unspecified; I50.9 Heart failure, unspecified; D69.6 Thrombocytopenia, unspecified; I50.32 Chronic diastolic (congestive) heart failure; J96.22 Acute and chronic respiratory failure with hypercapnia; F33.9 Major depressive disorder, recurrent, unspecified; J98.11 Atelectasis; J45.901 Unspecified asthma with (acute) exacerbation; N39.0 Urinary tract infection, site not specified; R65.20 Severe sepsis without septic shock; I25.10 Atherosclerotic heart disease of native coronary artery without angina pectoris; Z86.73 Personal history of transient ischemic attack (TIA), and cerebral infarction without residual deficits; Z85.828 Personal history of other malignant neoplasm of skin; J40 Bronchitis, not specified as acute or chronic; D64.9 Anemia, unspecified; E11.649 Type 2 diabetes mellitus with hypoglycemia without coma; G30.9 Alzheimer's disease, unspecified; F02.80 Dementia in other diseases classified elsewhere, unspecified severity, without behavioral disturbance, psychotic disturbance, mood disturbance, and anxiety; I48.2 Chronic atrial fibrillation; A49.1 Streptococcal infection, unspecified site; Z66 Do not resuscitate; Z68.30 Body mass index [BMI] 30.0-30.9, adult; R50.9 Fever, unspecified; R84.5 Abnormal microbiological findings in specimens from respiratory organs and thorax; Z22.322 Carrier or suspected carrier of Methicillin resistant Staphylococcus aureus; I95.9 Hypotension, unspecified

== ENCOUNTER 2016-12-02 05:31 | Inpatient (IN) | payer MEDICARE, MEDICAID ==
[2016-12-02] VITALS (10 sets, daily range): BP systolic 78–116; BP diastolic 36–86
[~2016-12-02] VITALS: Ht 177.8 cm; Wt 89.1 kg
--- NOTE | ~2016-12-02 | PR ---
[place], [place] PROGRESS NOTE NAME: JAMES FELICIANO UNIT #: [id number] ROOM: 530 DOCTOR: DAKSHA KATE III, DPM BIRTHDATE: [birth year] DOS: 12/05/2016 TIME OF DICTATION: 12:19 p.m. SUBJECTIVE: This is an 86-year-old male seen at bedside for followup and reevaluation of pre-ulcerative lesions to bilateral feet. The patient denies any new complaints. Vascular studies are pending. Three views of bilateral feet were performed, which showed no signs of underlying osteomyelitis or infection. PHYSICAL EXAMINATION: VASCULAR: DP and PT pulses are palpable, CFT is delayed, minimal +1 pitting edema bilateral lower extremities. NEUROLOGIC: No gross motor deficits. ORTHO: Muscle strength is reduced. Negative Homans', negative calf pain. DERMATOLOGICALLY: He has pre-ulcerative lesions noted to bilateral feet with no open ulcerations appreciated. IMAGING: X-rays showed no signs of osteomyelitis or underlying infection. Vascular studies are pending. ASSESSMENT: 1. Peripheral arterial disease. 2. Pre-ulcerative lesions, bilateral. TREATMENT PLANS AND RECOMMENDATIONS: Findings as well as prognosis was discussed in detail with the patient. All questions were answered to his apparent satisfaction. This is an 86-year-old male seen at bedside for followup and reevaluation of pre-ulcerative lesions to bilateral feet. X-ray showed no underlying infection. We will continue with offloading boots while in bed. We will await vascular studies. He can leave the feet open to the air at this time as no open ulcerations appreciated. The patient is in agreement. I spoke with the daughter at the bedside who is in agreement with plan as well. [place], [place] PROGRESS NOTE NAME: JAMES FELICIANO UNIT #: [id number] ROOM: 530 DOCTOR: DAKSHA KATE III, DPM BIRTHDATE: [birth year] DAKSHA KATE III, DPM CM:PNTRANS [phone] DAKSHA KATE III, DPM 12/06/16 0445 interface
--- NOTE | ~2016-12-02 | PR ---
[place], [place] PROGRESS NOTE NAME: JAMES FELICIANO [facility] #: [id number] UNIT #: [id number] ROOM: 530 DOCTOR: DEBBIE LUCIANO DPM BIRTHDATE: [birth year] DOS: 12/06/2016 SUBJECTIVE: The patient presents for followup of preulcerative lesions, bilateral foot. OBJECTIVE: Preulcerative lesions noted in fifth MPJ bilateral posterior lateral right heel. There is a superficial ulcer to the dorsal left foot noted. No signs of infection. Radiographs were unremarkable. Results of the patient's ultrasound arterial lower extremity exam revealed normal velocities in the right BELT BUILDER, SFA and popliteal artery with a triphasic waveform; however, no flow identified within the right lower leg arteries aside from the dorsalis pedis artery with monophasic waveform. Triphasic waveforms and normal velocities in the left BELT BUILDER, SFA and popliteal artery with normal velocities, however, monophasic waveform in the left lower leg arteries, nonvisualized PT artery. ABIs could not be obtained on this examination. ASSESSMENT: Preulcerative lesions, ulcer, dorsal left foot, peripheral vascular disease, diabetes. PLAN: Continue dry dressings. The patient is being discharged to [facility] and will be followed there, recommend Vascular consultation if worsening of the condition at all. DEBBIE LUCIANO DPM CM:PNTRANS [phone] DEBBIE LUCIANO DPM 12/07/16 0708 interface
--- NOTE | ~2016-12-02 | CON ---
[place], [place] REPORT OF CONSULTATION NAME: JAMES FELICIANO UNIT #: [id number] ROOM: 530 DOCTOR: DEBBIE LUCIANO DPM BIRTHDATE: [birth year] DOS: 12/04/2016 SUBJECTIVE: The patient is an 86-year-old white male with chief complaint of preulcerative lesions on both feet. PAST MEDICAL HISTORY: The patient has a past medical history of actinic keratosis right cheek, atrial fibrillation, coronary artery disease, cardiorenal disease, CHF, chronic respiratory failure, closed head injury, CVA, dementia, depression, type 2 diabetes, hypertension, normocytic anemia, protein-calorie malnutrition, severe squamous cell skin cancer, tachycardia, thrombocytopenia, transient ischemia attack, vitamin D deficiency. PAST SURGICAL HISTORY: Back surgery, CABG. SOCIAL HISTORY: Nonsmoker. No illicit drug use or alcohol. FAMILY HISTORY: Unknown. ALLERGIES: NONE. PHYSICAL EXAMINATION: EXTREMITIES: Lower extremity examination: Pedal pulses diminished bilateral foot. Decreased skin temperature bilateral. Decreased hair growth bilateral foot. There are preulcerative lesions grade 0 with ecchymosis at the fifth MPJ bilateral plantar lateral aspect. Also, the medial aspect of the first left MPJ and posterior lateral right heel. There are no full thickness breakdown areas noted. ASSESSMENT: Diabetes, peripheral vascular disease, preulcerative lesions bilateral foot. PLAN: Evaluation and management. Continue the heel protectors bilateral foot. We will order a dry dressing to the ulcerative sites and ordered 3 foot views bilateral foot to rule out any osseous involvement and also ordered arterial Doppler bilateral lower leg, and the patient will be reassessed tomorrow for followup. DEBBIE LUCIANO DPM CM:CONSTR:REPORT OF CONSULTATION 1127 12/05/16 0240 interface
[~2016-12-02 05:31] MED LIST changes: +AQUAPHOR OINTM396 GM TP; +DEPAKENE250 M1 PO; +ELIQUIS2.5 M1 PO; +EXEL13.31 TD; +EXELON4.6 MG/24 T; +EXELON9.5 MG/24 PO; +GUAIFENESIN600 MG PO; +IPRATROPIUM BRO; +JANUVIA100 MG PO; +METFORMIN500 MG PO; +METOPROLOL25 MG PO; +PAIN RELIEF325 M2 PO; +PRILOSEC20 M1 PO; +REMERON15 M2 PO; +TOBREX OPHTH O3.5 GM OPH; +VIT B PO; +VITAMIN D32000 IU PO
[2016-12-02 06:05] LABS: HEMATOCRIT 35.8 % (42.0-52.0); HEMOGLOBIN 11.1 g/dl (14.0-18.0); MEAN CELL VOLUME 92.3 fl (80.0-94.0); MEAN CORPUSCULAR HGB 28.6 pg (27.0-31.0); MEAN PLATELET VOLUME 13.5 fl (9.6-12.3); PLATELET COUNT AUTOMATED 116 10*3/uL (130-400); RED BLOOD COUNT 3.88 10*6/uL (4.50-5.90); RED CELL DISTRI WIDTH 16.6 % (0-14.5); WHITE BLOOD COUNT 22.5 10*3/uL (4.8-10.8)
[2016-12-02 06:19] LABS: BUN 29 mg/dl (7-24); CARBON DIOXIDE 31 mmol/L (21-32); CHLORIDE 103 mmol/L (98-107); EST GLOM FILT AFRICAN AMERICAN > 60 ml/min; POTASSIUM 3.7 mmol/L (3.5-5.1); SODIUM 138 mmol/L (136-145)
[2016-12-02 06:24] LABS: GLUCOSE 33 mg/dL (65-99)
[2016-12-02 06:30] LABS: ABG BASE EXCESS 0.2 mmol/L (-2.0-2.0); ABG CO2 CONTENT 27.1 mmol/L (23-27); ABG HCO3 25.7 mmol/l (22-26); ARTERIAL BLOOD GAS PH 7.356 (7.35-7.45); ARTERIAL BLOOD GAS PO2 96.8 mmHg (80-90)
[2016-12-02 06:38] LABS: EOSINOPHIL # 0.5 10*3/uL (0-0.4); EOSINOPHILS 2 % (1-4); LYMPHOCYTE # 1.6 10*3/uL (1.3-4.4); MONOCYTE # 0.9 10*3/uL (0.1-1.0); NEUTROPHIL # 19.6 10*3/uL (2.3-7.9); NEUTROPHILS 87 % (47-73); PLATELET SUFFICIENCY LOW (NORMAL); TOTAL CELLS COUNTED 100 #CELLS
[2016-12-02 06:39] LABS: TOXIC GRANULATION SLIGHT
[2016-12-02 08:02] LABS: LA>2 REFLEX 2 HR DRAW NOW
[2016-12-02 08:33] LABS: LA>2 RFLX FOLLOW UP AT 2 HRS 2.6 mmol/L (0.4-2.0)
[2016-12-02 09:23] LABS: BILIRUBIN NEGATIVE (NEGATIVE); BLOOD NEGATIVE (NEGATIVE); CLARITY CLEAR (CLEAR); COLOR YELLOW (YELLOW); GLUCOSE TRACE (NEGATIVE); KETONE NEGATIVE (NEGATIVE); LEUKO ESTERASE NEGATIVE (NEGATIVE); NITRITE NEGATIVE (NEGATIVE); PROTEIN NEGATIVE (NEGATIVE); UROBILINOGEN 0.2 E.U./dl (0.2-1.0)
[2016-12-02 09:30] LABS: MUCOUS TRACE; RBC 0-2 rbc/hpf (0-2); URINE REFLEX COMMENT NO (NO)
[2016-12-02 10:19] LABS: LA>2 REFLEX 4 HR DRAW NOW
[2016-12-02] MEDS ORDERED: PREDNISONE10 MG PO (16:20)
[2016-12-03] VITALS: BP 100/43
[2016-12-03 07:09] LABS: BASO % 0.1 % (0.0-1.0); EOS # 0.2 10*3/uL (0.0-0.4); EOS % 1.8 % (1.0-4.0); IG # 0.1 10*3/uL (0.0-0.1); LYMPH # 0.6 10*3/uL (1.3-4.4); LYMPH % 4.5 % (27.0-41.0); MEAN CELL VOLUME 92.6 fl (80.0-94.0); MEAN CORPUSCULAR HGB 28.8 pg (27.0-31.0); MEAN CORPUSCULAR HGB CONC 31.1 g/dl (33.0-37.0); MEAN PLATELET VOLUME 12.5 fl (9.6-12.3); MONO # 0.7 10*3/uL (0.1-1.0); MONO % 5.6 % (3.0-9.0); NEUT # 10.7 10*3/uL (2.3-7.9); NEUT % 86.9 % (47.0-73.0); RED BLOOD COUNT 2.71 10*6/uL (4.50-5.90); RED CELL DISTRI WIDTH 17.1 % (0-14.5); WHITE BLOOD COUNT 12.3 10*3/uL (4.8-10.8)
[2016-12-03 07:35] LABS: HEMATOCRIT 25.1 % (42.0-52.0); PLATELET COUNT AUTOMATED 56 10*3/uL (130-400)
[2016-12-03 07:36] LABS: HEMOGLOBIN 7.8 g/dl (14.0-18.0)
[2016-12-03 07:51] LABS: CARBON DIOXIDE 28 mmol/L (21-32); CHLORIDE 105 mmol/L (98-107); EST GLOM FILT AFRICAN AMERICAN > 60 ml/min; GLUCOSE 134 mg/dL (65-99); POTASSIUM 3.8 mmol/L (3.5-5.1); SODIUM 138 mmol/L (136-145)
[2016-12-03 07:52] LABS: BUN 19 mg/dl (7-24)
[2016-12-03 08:00] VITALS: BP 96/50
[2016-12-03 12:00] VITALS: BP 101/52
[2016-12-03 16:00] VITALS: BP 116/50
[2016-12-03 20:00] VITALS: BP 124/74; BP 162/63
[2016-12-04] VITALS: BP 120/54
[2016-12-04 00:25] LABS: HEMATOCRIT 24.6 % (42.0-52.0); HEMOGLOBIN 7.7 g/dl (14.0-18.0)
[2016-12-04 07:42] LABS: BASO % 0.2 % (0.0-1.0); EOS # 0.2 10*3/uL (0.0-0.4); EOS % 2.1 % (1.0-4.0); HEMATOCRIT 24.4 % (42.0-52.0); HEMOGLOBIN 7.4 g/dl (14.0-18.0); IG # 0.1 10*3/uL (0.0-0.1); LYMPH # 0.7 10*3/uL (1.3-4.4); LYMPH % 6.6 % (27.0-41.0); MEAN CELL VOLUME 93.8 fl (80.0-94.0); MEAN CORPUSCULAR HGB 28.5 pg (27.0-31.0); MEAN CORPUSCULAR HGB CONC 30.3 g/dl (33.0-37.0); MEAN PLATELET VOLUME 13.5 fl (9.6-12.3); MONO # 0.8 10*3/uL (0.1-1.0); MONO % 7.8 % (3.0-9.0); NEUT # 8.4 10*3/uL (2.3-7.9); NEUT % 82.3 % (47.0-73.0); PLATELET COUNT AUTOMATED 53 10*3/uL (130-400); RED CELL DISTRI WIDTH 17.2 % (0-14.5); WHITE BLOOD COUNT 10.2 10*3/uL (4.8-10.8)
[2016-12-04 08:00] VITALS: BP 132/78
[2016-12-04 12:00] VITALS: BP 110/65
[2016-12-04 16:29] VITALS: BP 106/51
[2016-12-04 20:00] VITALS: BP 103/53
[2016-12-05] VITALS: BP 108/49
[2016-12-05 08:00] VITALS: BP 110/52
[2016-12-05 10:01] LABS: BUN 12 mg/dl (7-24); CARBON DIOXIDE 28 mmol/L (21-32); CHLORIDE 107 mmol/L (98-107); EST GLOM FILT AFRICAN AMERICAN > 60 ml/min; GLUCOSE 210 mg/dL (65-99); POTASSIUM 3.5 mmol/L (3.5-5.1); SODIUM 141 mmol/L (136-145)
[2016-12-05 10:07] LABS: BASO % 0.2 % (0.0-1.0); EOS # 0.3 10*3/uL (0.0-0.4); EOS % 2.4 % (1.0-4.0); HEMOGLOBIN 7.8 g/dl (14.0-18.0); IG # 0.1 10*3/uL (0.0-0.1); LYMPH # 0.7 10*3/uL (1.3-4.4); LYMPH % 6.2 % (27.0-41.0); MEAN CELL VOLUME 95.2 fl (80.0-94.0); MEAN CORPUSCULAR HGB 28.6 pg (27.0-31.0); MEAN PLATELET VOLUME 12.9 fl (9.6-12.3); MONO # 0.8 10*3/uL (0.1-1.0); NEUT # 8.7 10*3/uL (2.3-7.9); PLATELET COUNT AUTOMATED 55 10*3/uL (130-400); RED BLOOD COUNT 2.73 10*6/uL (4.50-5.90); RED CELL DISTRI WIDTH 17.8 % (0-14.5); WHITE BLOOD COUNT 10.6 10*3/uL (4.8-10.8)
[2016-12-05 12:00] VITALS: BP 118/56
[2016-12-05 16:00] VITALS: BP 126/82
[2016-12-05 20:00] VITALS: BP 133/51
[2016-12-06] VITALS: BP 118/57
[2016-12-06 08:00] VITALS: BP 130/60
[2016-12-06] MEDS ORDERED: DOXYCYCLINE100 MG PO (11:45)
[2016-12-06] MEDS ORDERED: SUPRAX400 M2 PO (11:45)
[2016-12-06 12:00] VITALS: BP 120/56
[2016-12-06 16:00] VITALS: BP 98/50
== END 2016-12-06 16:54 | disposition other institution (70) | DRG 871 ==
LOC: ED 05:31 → EDHOLD 09:55 → 5E 09:55
PROVIDERS: Emergency Medicine Emergency Medical Services; Internal Medicine; Internal Medicine Hospice and Palliative Medicine; Student in an Organized Health Care Education/Training Program
DX: A41.9 Sepsis, unspecified organism (principal); J18.9 Pneumonia, unspecified organism; E43 Unspecified severe protein-calorie malnutrition; G93.41 Metabolic encephalopathy; J96.10 Chronic respiratory failure, unspecified whether with hypoxia or hypercapnia; I13.0 Hypertensive heart and chronic kidney disease with heart failure and stage 1 through stage 4 chronic kidney disease, or unspecified chronic kidney disease; F03.90 Unspecified dementia, unspecified severity, without behavioral disturbance, psychotic disturbance, mood disturbance, and anxiety; E11.22 Type 2 diabetes mellitus with diabetic chronic kidney disease; D69.6 Thrombocytopenia, unspecified; I50.32 Chronic diastolic (congestive) heart failure; F33.9 Major depressive disorder, recurrent, unspecified; I25.10 Atherosclerotic heart disease of native coronary artery without angina pectoris; E86.0 Dehydration; E11.649 Type 2 diabetes mellitus with hypoglycemia without coma; N18.9 Chronic kidney disease, unspecified; E55.9 Vitamin D deficiency, unspecified; D64.9 Anemia, unspecified; E11.51 Type 2 diabetes mellitus with diabetic peripheral angiopathy without gangrene; D72.810 Lymphocytopenia; E11.621 Type 2 diabetes mellitus with foot ulcer; L97.529 Non-pressure chronic ulcer of other part of left foot with unspecified severity; L97.519 Non-pressure chronic ulcer of other part of right foot with unspecified severity; I48.2 Chronic atrial fibrillation; Z66 Do not resuscitate; Z79.01 Long term (current) use of anticoagulants; Z79.4 Long term (current) use of insulin; Z79.84 Long term (current) use of oral hypoglycemic drugs; Z79.899 Other long term (current) drug therapy; Z68.28 Body mass index [BMI] 28.0-28.9, adult; Z95.1 Presence of aortocoronary bypass graft; Z86.73 Personal history of transient ischemic attack (TIA), and cerebral infarction without residual deficits; Z82.49 Family history of ischemic heart disease and other diseases of the circulatory system; Z82.3 Family history of stroke

== ENCOUNTER 2016-12-19 06:49 | Emergency (ER) | payer MEDICARE, MEDICAID ==
[~2016-12-19] VITALS: Ht 177.8 cm; Wt 81.6 kg
[~2016-12-19 06:49] MED LIST changes: +DOXYCYCLINE100 MG PO; +SUPRAX400 M2 PO
[2016-12-19 07:50] LABS: BASO % 0.2 % (0.0-1.0); EOS # 0.2 10*3/uL (0.0-0.4); EOS % 2.2 % (1.0-4.0); HEMATOCRIT 32.8 % (42.0-52.0); HEMOGLOBIN 10.3 g/dl (14.0-18.0); IG # 0.1 10*3/uL (0.0-0.1); LYMPH # 0.8 10*3/uL (1.3-4.4); LYMPH % 9.1 % (27.0-41.0); MEAN CELL VOLUME 96.2 fl (80.0-94.0); MEAN CORPUSCULAR HGB 30.2 pg (27.0-31.0); MEAN CORPUSCULAR HGB CONC 31.4 g/dl (33.0-37.0); MEAN PLATELET VOLUME 12.7 fl (9.6-12.3); MONO # 0.8 10*3/uL (0.1-1.0); MONO % 8.5 % (3.0-9.0); NEUT # 7.3 10*3/uL (2.3-7.9); NEUT % 78.7 % (47.0-73.0); PLATELET COUNT AUTOMATED 59 10*3/uL (130-400); RED BLOOD COUNT 3.41 10*6/uL (4.50-5.90); RED CELL DISTRI WIDTH 19.5 % (0-14.5); WHITE BLOOD COUNT 9.3 10*3/uL (4.8-10.8)
[2016-12-19 08:02] LABS: BUN 24 mg/dl (7-24); CARBON DIOXIDE 36 mmol/L (21-32); CHLORIDE 94 mmol/L (98-107); EST GLOM FILT AFRICAN AMERICAN > 60 ml/min; GLUCOSE 83 mg/dL (65-99); POTASSIUM 4.5 mmol/L (3.5-5.1); SODIUM 136 mmol/L (136-145)
== END 2016-12-19 09:18 | disposition home or self-care (01) ==
LOC: ED 06:49
PROVIDERS: Student in an Organized Health Care Education/Training Program
DX: E11.649 Type 2 diabetes mellitus with hypoglycemia without coma (principal); I48.91 Unspecified atrial fibrillation; I25.10 Atherosclerotic heart disease of native coronary artery without angina pectoris; I13.0 Hypertensive heart and chronic kidney disease with heart failure and stage 1 through stage 4 chronic kidney disease, or unspecified chronic kidney disease; N18.9 Chronic kidney disease, unspecified; I50.20 Unspecified systolic (congestive) heart failure; F03.90 Unspecified dementia, unspecified severity, without behavioral disturbance, psychotic disturbance, mood disturbance, and anxiety; E55.9 Vitamin D deficiency, unspecified; Z86.73 Personal history of transient ischemic attack (TIA), and cerebral infarction without residual deficits; Z95.1 Presence of aortocoronary bypass graft; Z98.890 Other specified postprocedural states; Z79.899 Other long term (current) drug therapy